=== PATIENT | female | born 1955 | race Caucasian/White ===

== ENCOUNTER 2017-01-07 08:57 | Inpatient (IN) | payer MEDICARE, MEDICAID ==
--- NOTE | 2017-01-07 14:59 | PCM.HP ---
H&P History of Present Illness - General Date of Service: 01/07/17 Admit Problem/Dx: cellulitis - History of Present Illness Initial Comments - Free Text/Narative: 61 y/o with PMH of pre-DM, obesity, chronic pain- back/leg, fatty liver, GERD, HTN, HLD pt admitted to [facility] 12/30/15 for severe cellulitis . She responded well to vanc/ zosyn- cultures neg to date but has h/o MRSA. pt requires 10-14 days of vanc Britt states her leg cont to improve on the antibx and with draining blisters. Pain is controlled iwth the fentayl and PRN norco. no f/c she denies any problems with antibx- no rash, dairies, n/v. no abd pain . - Related Data Allergies/Adverse Reactions: Allergies Allergy/AdvReac Type Severity Reaction Status Date / Time erythromycin base Allergy Dizziness Verified 01/07/17 15:49 Home Medications: Home Meds Gabapentin [Neurontin] 600 mg PO BID 12/30/16 [History] Hydrochlorothiazide 25 mg PO DAILY 12/30/16 [History] Lisinopril 40 mg PO DAILY 12/30/16 [History] Sertraline [Zoloft] 150 mg PO DAILY 12/30/16 [History] Solifenacin [Vesicare] 10 mg PO DAILY 12/30/16 [History] metFORMIN HCl [Metformin HCl] 500 mg PO ACBREAKFAST 12/30/16 [History] Aspirin/Calcium Carbonate/Mag [Aspirin Buffered 325 mg Tab] 325 mg PO DAILY [History] Docusate Sodium [Colace] 100 mg PO DAILY 01/07/17 [History] Hydrocodone/Acetaminophen [Hydrocodon-Acetaminophn 10-325] 1 tab PO Q8H PRN [History] Ibuprofen 800 mg PO Q8H PRN 01/07/17 [History] Nystatin [Nystop] 15 gm TOP TID 01/07/17 [History] Omeprazole 20 mg PO BIDAC 01/07/17 [History] Sennosides/Docusate Sodium [Senokot-S Tablet] 1 each PO BEDTIME 01/07/17 [ History] amLODIPine [Norvasc] 5 mg PO DAILY 01/07/17 [History] atorvaSTATin [Lipitor] 40 mg PO DAILY 01/07/17 [History] Past Medical History Gastrointestinal History: Reports: Other (see below) Other Gastrointestinal History: enlarged liver Endocrine/Metabolic History: Reports: Obesity/BMI 30+ - Past Surgical History Other Cardiovascular Surgeries/Procedures: OCD Other Musculoskeletal Surgeries/Procedures:: left knee metal plate Social & Family History - Tobacco Use Smoking Status *Q: Never Smoker Second Hand Smoke Exposure: Yes - Caffeine Use Caffeine Use: Reports: None - Recreational Drug Use Recreational Drug Use: No H&P Review of Systems - Review of Systems: Review Of Systems: See Below General: Reports: decreased appetite HEENT: Reports: no symptoms Pulmonary: Reports: no symptoms Cardiovascular: Reports: dyspnea on exertion, edema Gastrointestinal: Reports: No symptoms Genitourinary: Reports: urgency Musculoskeletal: Reports: leg pain Skin: Reports: erythema Psychiatric: Reports: depression (h/o), anxiety (h/o) Neurological: Reports: no symptoms Exam - Exam Exam: See Below - Vital Signs Weight: 136.078 kg - Exam Quality Assessment: central line/PICC General: alert, oriented, cooperative HEENT: Conjunctiva clear, Other (apthous ulcer in inner lower lip ) Lungs: Clear to auscultation, Normal respiratory effort Cardiovascular: regular rate, regular rhythm Abdomen: normal bowel sounds, soft, other (morbidly obese ) Extremities: other (left leg in wraps, ) Skin: warm Neuro Extensive - Mental Status: alert, oriented x3, normal mood/affect, normal cognition Psychiatric: alert, normal affect - Patient Data Lab Results last 24 hrs: most recent labs from [facility]: WBC 8.1, hgb 12.2. plates 500 sodium 135, K 4.4 , CO2 26, BUN 11 creatrinin 0.8 *Q Meaningful Use (ADM) - VTE *Q VTE Criteria *Q: - Stroke *Q Stroke Criteria *Q: - AMI *Q AMI Criteria *Q: - Problem List (1) Cellulitis SNOMED Code(s): 768653966 ICD Code: L03.90 - CELLULITIS, UNSPECIFIED Status: Acute Current Visit: No Qualifiers: Site of cellulitis: extremity Site of cellulitis of extremity: lower extremity Laterality: left Qualified Code(s): L03.116 - Cellulitis of left lower limb Problem List Initiated/Reviewed/Updated: Yes Assessment/Plan Comment:: Cellulitins -initially admitted to [facility] on 12/30/16. -h/o MRSA -antibx course- vanc/zosyn- now just zosyn - ID recommending 10-14 days -PICC line placed 01/07/17 -blisters on leg drained - requiring dressing changes several time daily -has lymphedema wraps -pain controlled iwth fenatnl patch- last placed 01/06/17 and PRN norco -consult PT/OT to keep pt mobile -f/u with wound care january 21 ; and ID 01/14/17 - labs for this appointment placed - Hyperglycemia/ fatty liver/ obestiy -cont metformin Chronic pain -h/o trauma to leg and chronic back pain -cont gabapentin HTN stable - cont prior regimen - was on lisinopril 40 prior to admit - pressures were low so now only on 10 mg apthous ulcer lower lip add Triamcinolone dental paste BID to ulcer GERD -cont PPI HLD -cont statin Urge incontinency -cont detrol PRe-DM -cont metfomrin -PRN SSI full code heparin for DVT PPX
[2017-01-07] MEDS ORDERED: Ibuprofen 800 MG Tab PO PRN (16:06)
[2017-01-07] MEDS ORDERED: Vancomycin 1.5 GM in Sodium Chloride 0.9% 500 ML IV SCH (17:00)
[2017-01-07] MEDS: Insulin Aspart 100 Units/ML 3 ML Pen SUBCUT SCH ×2 (17:14→21:07)
[2017-01-07] MEDS: Omeprazole 20 MG Cap.CR PO SCH (17:25)
[2017-01-07] MEDS: fentaNYL 12 MCG/HR Transdermal Patch TRDERM SCH (19:44)
[2017-01-07] MEDS: Heparin Sodium 5,000 Units/ML Vial SUBCUT SCH (21:06)
[2017-01-07] MEDS: Tolterodine 2 MG Tab PO SCH (21:06)
[2017-01-07] MEDS: Gabapentin 300 MG Cap PO SCH (21:06)
[2017-01-07] MEDS: Triamcinolone Acetonide 0.1% Dental Paste 5 GM Tube DENT SCH (21:06)
[2017-01-07] MEDS: Acetaminophen/HYDROcodone 325-10 MG Tab PO PRN (21:07)
[2017-01-08] MEDS ORDERED: Vancomycin 1.5 GM in Sodium Chloride 0.9% 500 ML IV SCH (02:00)
[2017-01-08] MEDS: Vancomycin 1.5 GM in Sodium Chloride 0.9% 500 ML IV SCH ×2 (04:53→16:32)
[2017-01-08] MEDS: Omeprazole 20 MG Cap.CR PO SCH ×2 (05:01→16:31)
[2017-01-08] MEDS: Heparin Sodium 5,000 Units/ML Vial SUBCUT SCH ×3 (05:01→21:33)
[2017-01-08] MEDS ORDERED: metFORMIN 500 MG Tab PO SCH (06:00)
[2017-01-08] MEDS: Insulin Aspart 100 Units/ML 3 ML Pen SUBCUT SCH ×4 (07:55→21:32)
[2017-01-08] MEDS: Aspirin 325 MG Tab.EC PO SCH (08:26)
[2017-01-08] MEDS: Tolterodine 2 MG Tab PO SCH ×2 (08:27→21:33)
[2017-01-08] MEDS: Hydrochlorothiazide 25 MG Tab PO SCH (08:27)
[2017-01-08] MEDS: Lisinopril 10 MG Tab PO SCH (08:27)
[2017-01-08] MEDS: atorvaSTATin 20 MG Tab PO SCH (08:28)
[2017-01-08] MEDS: Gabapentin 300 MG Cap PO SCH ×2 (08:28→21:33)
[2017-01-08] MEDS: Sertraline 50 MG Tab PO SCH (08:29)
[2017-01-08] MEDS: Docusate Sodium 100 MG Cap PO SCH (08:29)
[2017-01-08] MEDS: Acetaminophen/HYDROcodone 325-10 MG Tab PO PRN ×2 (08:32→16:30)
[2017-01-08] MEDS: Triamcinolone Acetonide 0.1% Dental Paste 5 GM Tube DENT SCH ×2 (08:34→21:33)
[2017-01-08] MEDS ORDERED: amLODIPine 5 MG Tab PO SCH (09:00)
[2017-01-08] MEDS: Nystatin Crm 15 GM Tube TOP SCH ×2 (11:30→21:33)
[2017-01-09] MEDS: Acetaminophen/HYDROcodone 325-10 MG Tab PO PRN ×3 (00:37→17:16)
[2017-01-09] MEDS: Vancomycin 1.5 GM in Sodium Chloride 0.9% 500 ML IV SCH ×2 (05:21→18:04)
[2017-01-09] MEDS: Omeprazole 20 MG Cap.CR PO SCH ×2 (05:21→17:16)
[2017-01-09] MEDS: Heparin Sodium 5,000 Units/ML Vial SUBCUT SCH ×3 (05:21→21:06)
[2017-01-09] MEDS: Insulin Aspart 100 Units/ML 3 ML Pen SUBCUT SCH ×4 (08:16→21:05)
[2017-01-09] MEDS: Aspirin 325 MG Tab.EC PO SCH (08:37)
[2017-01-09] MEDS: metFORMIN 500 MG Tab PO SCH (08:37)
[2017-01-09] MEDS: Gabapentin 300 MG Cap PO SCH ×2 (08:37→21:04)
[2017-01-09] MEDS: Lisinopril 10 MG Tab PO SCH (08:38)
[2017-01-09] MEDS: Docusate Sodium 100 MG Cap PO SCH (08:38)
[2017-01-09] MEDS: Tolterodine 2 MG Tab PO SCH ×2 (08:38→21:04)
[2017-01-09] MEDS: Hydrochlorothiazide 25 MG Tab PO SCH (08:39)
[2017-01-09] MEDS: atorvaSTATin 20 MG Tab PO SCH (08:39)
[2017-01-09] MEDS: Sertraline 50 MG Tab PO SCH (08:39)
[2017-01-09] MEDS: Nystatin Crm 15 GM Tube TOP SCH ×2 (08:42→21:04)
[2017-01-09] MEDS: Triamcinolone Acetonide 0.1% Dental Paste 5 GM Tube DENT SCH ×2 (08:42→21:04)
[2017-01-10] MEDS: Acetaminophen/HYDROcodone 325-10 MG Tab PO PRN ×3 (02:54→20:06)
[2017-01-10] MEDS: Heparin Sodium 5,000 Units/ML Vial SUBCUT SCH ×3 (05:22→21:20)
[2017-01-10] MEDS: Omeprazole 20 MG Cap.CR PO SCH ×2 (05:22→17:20)
[2017-01-10] MEDS: Vancomycin 1.5 GM in Sodium Chloride 0.9% 500 ML IV SCH ×2 (05:22→17:23)
[2017-01-10] MEDS: atorvaSTATin 20 MG Tab PO SCH (08:11)
[2017-01-10] MEDS: metFORMIN 500 MG Tab PO SCH (08:11)
[2017-01-10] MEDS: Tolterodine 2 MG Tab PO SCH ×2 (08:11→21:17)
[2017-01-10] MEDS: Lisinopril 10 MG Tab PO SCH (08:12)
[2017-01-10] MEDS: Aspirin 325 MG Tab.EC PO SCH (08:12)
[2017-01-10] MEDS: Docusate Sodium 100 MG Cap PO SCH (08:12)
[2017-01-10] MEDS: Hydrochlorothiazide 25 MG Tab PO SCH (08:12)
[2017-01-10] MEDS: Gabapentin 300 MG Cap PO SCH ×2 (08:12→21:17)
[2017-01-10] MEDS: Insulin Aspart 100 Units/ML 3 ML Pen SUBCUT SCH ×2 (08:44→17:58)
[2017-01-10] MEDS: Sertraline 50 MG Tab PO SCH (11:20)
[2017-01-10] MEDS: fentaNYL 12 MCG/HR Transdermal Patch TRDERM SCH (17:22)
[2017-01-10] MEDS: Triamcinolone Acetonide 0.1% Dental Paste 5 GM Tube DENT SCH ×2 (17:58→21:26)
[2017-01-10] MEDS: Nystatin Crm 15 GM Tube TOP SCH ×2 (17:58→21:29)
[2017-01-11] MEDS: Vancomycin 1.5 GM in Sodium Chloride 0.9% 500 ML IV SCH ×2 (05:00→17:56)
[2017-01-11] MEDS: Omeprazole 20 MG Cap.CR PO SCH ×2 (05:55→17:54)
[2017-01-11] MEDS: Heparin Sodium 5,000 Units/ML Vial SUBCUT SCH ×3 (05:57→22:04)
[2017-01-11] MEDS: metFORMIN 500 MG Tab PO SCH (08:46)
[2017-01-11] MEDS: Gabapentin 300 MG Cap PO SCH ×2 (08:47→21:47)
[2017-01-11] MEDS: Docusate Sodium 100 MG Cap PO SCH (08:49)
[2017-01-11] MEDS: Hydrochlorothiazide 25 MG Tab PO SCH (08:50)
[2017-01-11] MEDS: Lisinopril 10 MG Tab PO SCH (08:50)
[2017-01-11] MEDS: Aspirin 325 MG Tab.EC PO SCH (08:50)
[2017-01-11] MEDS: Sertraline 50 MG Tab PO SCH (08:51)
[2017-01-11] MEDS: Tolterodine 2 MG Tab PO SCH ×2 (08:51→21:47)
[2017-01-11] MEDS: atorvaSTATin 20 MG Tab PO SCH (08:51)
[2017-01-11] MEDS: Triamcinolone Acetonide 0.1% Dental Paste 5 GM Tube DENT SCH ×2 (08:53→21:46)
[2017-01-11] MEDS: Acetaminophen/HYDROcodone 325-10 MG Tab PO PRN ×2 (09:02→17:55)
[2017-01-11] MEDS: Nystatin Crm 15 GM Tube TOP SCH ×2 (12:34→21:46)
[2017-01-12] MEDS: Acetaminophen/HYDROcodone 325-10 MG Tab PO PRN ×3 (02:16→19:54)
[2017-01-12] MEDS: Vancomycin 1.5 GM in Sodium Chloride 0.9% 500 ML IV SCH ×2 (04:58→17:00)
[2017-01-12] MEDS: Heparin Sodium 5,000 Units/ML Vial SUBCUT SCH ×3 (05:26→21:43)
[2017-01-12] MEDS: Omeprazole 20 MG Cap.CR PO SCH ×2 (05:26→17:02)
[2017-01-12] MEDS: metFORMIN 500 MG Tab PO SCH (08:40)
[2017-01-12] MEDS: Hydrochlorothiazide 25 MG Tab PO SCH (08:40)
[2017-01-12] MEDS: Aspirin 325 MG Tab.EC PO SCH (08:41)
[2017-01-12] MEDS: Gabapentin 300 MG Cap PO SCH ×2 (08:41→21:07)
[2017-01-12] MEDS: atorvaSTATin 20 MG Tab PO SCH (08:41)
[2017-01-12] MEDS: Sertraline 50 MG Tab PO SCH (08:41)
[2017-01-12] MEDS: Lisinopril 10 MG Tab PO SCH (08:42)
[2017-01-12] MEDS: Docusate Sodium 100 MG Cap PO SCH (08:42)
[2017-01-12] MEDS: Tolterodine 2 MG Tab PO SCH ×2 (08:42→21:06)
[2017-01-12] MEDS: Triamcinolone Acetonide 0.1% Dental Paste 5 GM Tube DENT SCH ×2 (11:42→21:08)
[2017-01-12] MEDS: Nystatin Crm 15 GM Tube TOP SCH ×2 (11:42→21:08)
[2017-01-13] MEDS: Vancomycin 1.5 GM in Sodium Chloride 0.9% 500 ML IV SCH ×2 (04:46→16:50)
[2017-01-13] MEDS: Acetaminophen/HYDROcodone 325-10 MG Tab PO PRN ×2 (05:05→13:16)
[2017-01-13] MEDS: Omeprazole 20 MG Cap.CR PO SCH ×2 (06:00→16:51)
[2017-01-13] MEDS: Heparin Sodium 5,000 Units/ML Vial SUBCUT SCH ×3 (06:00→21:37)
[2017-01-13] MEDS: Hydrochlorothiazide 25 MG Tab PO SCH (08:17)
[2017-01-13] MEDS: atorvaSTATin 20 MG Tab PO SCH (08:17)
[2017-01-13] MEDS: Aspirin 325 MG Tab.EC PO SCH (08:17)
[2017-01-13] MEDS: Docusate Sodium 100 MG Cap PO SCH (08:17)
[2017-01-13] MEDS: metFORMIN 500 MG Tab PO SCH (08:17)
[2017-01-13] MEDS: Sertraline 50 MG Tab PO SCH (08:17)
[2017-01-13] MEDS: Tolterodine 2 MG Tab PO SCH ×2 (08:17→21:17)
[2017-01-13] MEDS: Lisinopril 10 MG Tab PO SCH (08:18)
[2017-01-13] MEDS: Gabapentin 300 MG Cap PO SCH ×2 (08:18→21:17)
[2017-01-13] MEDS: Nystatin Crm 15 GM Tube TOP SCH ×2 (08:20→21:19)
[2017-01-13] MEDS: Triamcinolone Acetonide 0.1% Dental Paste 5 GM Tube DENT SCH ×2 (08:21→21:19)
[2017-01-13] MEDS: Acetaminophen 325 MG Tab PO PRN (09:43)
[2017-01-13] MEDS: fentaNYL 12 MCG/HR Transdermal Patch TRDERM SCH (16:51)
[2017-01-14] MEDS: Vancomycin 1.5 GM in Sodium Chloride 0.9% 500 ML IV SCH (04:50)
[2017-01-14] MEDS: Heparin Sodium 5,000 Units/ML Vial SUBCUT SCH ×3 (05:57→22:05)
[2017-01-14] MEDS: Omeprazole 20 MG Cap.CR PO SCH ×2 (05:58→17:15)
[2017-01-14] MEDS: Sertraline 50 MG Tab PO SCH (09:16)
[2017-01-14] MEDS: Aspirin 325 MG Tab.EC PO SCH (09:17)
[2017-01-14] MEDS: Tolterodine 2 MG Tab PO SCH ×2 (09:17→22:03)
[2017-01-14] MEDS: Docusate Sodium 100 MG Cap PO SCH (09:17)
[2017-01-14] MEDS: metFORMIN 500 MG Tab PO SCH (09:17)
[2017-01-14] MEDS: Lisinopril 10 MG Tab PO SCH (09:18)
[2017-01-14] MEDS: atorvaSTATin 20 MG Tab PO SCH (09:18)
[2017-01-14] MEDS: Gabapentin 300 MG Cap PO SCH ×2 (09:18→22:01)
[2017-01-14] MEDS: Hydrochlorothiazide 25 MG Tab PO SCH (09:18)
[2017-01-14] MEDS: Nystatin Crm 15 GM Tube TOP SCH ×2 (09:18→22:03)
[2017-01-14] MEDS: Triamcinolone Acetonide 0.1% Dental Paste 5 GM Tube DENT SCH ×2 (09:19→22:03)
[2017-01-14] MEDS: Acetaminophen/HYDROcodone 325-10 MG Tab PO PRN ×2 (14:24→23:09)
--- NOTE | 2017-01-14 17:32 | PCM.PN ---
- General Info Date of Service: 01/14/17 Subjective Update: Patient seen today after her follow up appt with ID. IV antibiotics now shifted to PO doxycycline. she denies any pain, no chest pain nor SOB. starting to have dry cough. no diarrhea nor abdominal pain. Functional Status: Reports: pain controlled, tolerating diet, ambulating - Patient Data Vitals - most recent: Last Vital Signs Temp 36.0 C 01/14/17 15:12 Pulse 74 01/14/17 15:12 Resp 18 01/14/17 15:12 BP 104/45 L 01/14/17 15:12 Pulse Ox 99 01/14/17 15:12 Weight - most recent: 179.441 kg I&O - last 24 hours: Intake & Output 01/14/17 01/14/17 01/14/17 06:59 14:59 22:59 Intake Total 400 Output Total 500 Balance -100 Lab Results last 24 hrs: Laboratory Results - last 24 hr 01/13/17 01/14/17 01/14/17 Range/Units 07:37 06:00 06:00 WBC 5.8 (5.0-10.0) 10^3/uL RBC 4.07 L (4.2-5.4) 10^6/uL Hgb 11.8 L (12.0-16.0) g/dL Hct 37.5 (37.0-47.0) % MCV 92.1 (80-100) fL MCH 29.0 (27.0-34.0) pg MCHC 31.5 L (33.0-35.0) g/dL Plt Count 408 (150-450) 10^3/uL Neut % (Auto) 57.1 (42.2-75.2) % Lymph % (Auto) 30.3 (20.5-50.1) % [place] % (Auto) 10.2 H (2-8) % Eos % (Auto) 1.9 (1.0-3.0) % Baso % (Auto) 0.5 (0.0-1.0) % ESR 76 H (0-20) mm/hr Creatinine 0.7 (0.6-1.3) mg/dL Est Cr Clr Drug Dosing 101.73 mL/min Estimated GFR (MDRD) > 60 POC Glucose 99 (70-105) mg/dl ALT 26 (10-60) IU/L C-Reactive Protein (0.0-1.3) mg/dL 01/14/17 01/14/17 Range/Units 06:00 08:04 WBC (5.0-10.0) 10^3/uL RBC (4.2-5.4) 10^6/uL Hgb (12.0-16.0) g/dL Hct (37.0-47.0) % MCV (80-100) fL MCH (27.0-34.0) pg MCHC (33.0-35.0) g/dL Plt Count (150-450) 10^3/uL Neut % (Auto) (42.2-75.2) % Lymph % (Auto) (20.5-50.1) % [place] % (Auto) (2-8) % Eos % (Auto) (1.0-3.0) % Baso % (Auto) (0.0-1.0) % ESR (0-20) mm/hr Creatinine (0.6-1.3) mg/dL Est Cr Clr Drug Dosing mL/min Estimated GFR (MDRD) POC Glucose 115 H (70-105) mg/dl ALT (10-60) IU/L C-Reactive Protein 3.0 H (0.0-1.3) mg/dL Med Orders - Current: Current Medications Acetaminophen (Tylenol) 650 mg PO Q6H PRN PRN Reason: Pain Last Admin: 01/13/17 09:43 Dose: 650 mg Acetaminophen/Hydrocodone Bitart ([place] 325-10 Mg) 1 tab PO Q8H PRN PRN Reason: Pain (severe 7-10) Last Admin: 01/14/17 14:24 Dose: 1 tab Aspirin (Ecotrin) 325 mg PO DAILY [facility] Last Admin: 01/14/17 09:17 Dose: 325 mg Atorvastatin Calcium (Lipitor) 40 mg PO DAILY [facility] Last Admin: 01/14/17 09:18 Dose: 40 mg Docusate Sodium (Colace) 100 mg PO DAILY [facility] Last Admin: 01/14/17 09:17 Dose: 100 mg Doxycycline Hyclate (Vibramycin) 100 mg PO Q12HR [facility] Stop: 01/27/17 23:59 Fentanyl (Duragesic) 12 mcg TRDERM Q72H [facility] Last Admin: 01/13/17 16:51 Dose: 12 mcg Gabapentin (Neurontin) 600 mg PO BID [facility] Last Admin: 01/14/17 09:18 Dose: 600 mg Heparin Sodium (Porcine) (Heparin Sodium) 5,000 units SUBCUT Q8HR [facility] Last Admin: 01/14/17 14:23 Dose: 5,000 units Hydrochlorothiazide (Hydrochlorothiazide) 25 mg PO DAILY [facility] Last Admin: 01/14/17 09:18 Dose: 25 mg Lisinopril (Prinivil) 10 mg PO DAILY [facility] Last Admin: 01/14/17 09:18 Dose: 10 mg Metformin HCl (Glucophage) 500 mg PO DAILY@0800 [facility] Last Admin: 01/14/17 09:17 Dose: 500 mg Nystatin (Nystatin Crm) 0 gm TOP BID [facility] Last Admin: 01/14/17 09:18 Dose: 1 applic Omeprazole (Omeprazole) 20 mg PO BIDAC [facility] Last Admin: 01/14/17 17:15 Dose: 20 mg Senna/Docusate Sodium (Senna Plus) 1 tab PO BEDTIME [facility] Last Admin: 01/13/17 21:18 Dose: 1 tab Sertraline HCl (Zoloft) 150 mg PO DAILY [facility] Last Admin: 01/14/17 09:16 Dose: 150 mg Tolterodine Tartrate (Detrol) 2 mg PO BID [facility] Last Admin: 01/14/17 09:17 Dose: 2 mg Triamcinolone Acetonide (Oralone 0.1% Dental Paste) 5 gm DENT BID [facility] Last Admin: 01/14/17 09:19 Dose: 1 applic Discontinued Medications Amlodipine Besylate (Norvasc) 5 mg PO DAILY [facility] Vancomycin HCl 1.5 gm/ Sodium (Chloride) 500 mls @ 333.333 mls/hr IV Q12H [facility] Last Admin: 01/07/17 17:11 Dose: 333.333 mls/hr Vancomycin HCl 1.5 gm/ Sodium (Chloride) 500 mls @ 333.333 mls/hr IV Q12H [facility] Vancomycin HCl 1.5 gm/ Sodium (Chloride) 500 mls @ 333.333 mls/hr IV Q12H [facility] Last Admin: 01/14/17 04:50 Dose: 200 mls/hr Ibuprofen (Motrin) 800 mg PO Q8H PRN PRN Reason: Pain (mild 1-3) Insulin Aspart (Novolog) 0 unit SUBCUT QIDACANDBED [facility] PRN Reason: Protocol Last Admin: 01/10/17 17:58 Dose: Not Given Metformin HCl (Glucophage) 500 mg PO ACBREAKFAST [facility] Last Admin: 01/08/17 08:28 Dose: 500 mg Metformin HCl (Glucophage) 500 mg PO DAILY@0700 [facility] Last Admin: 01/13/17 08:17 Dose: 500 mg Vancomycin HCl (Pharmacy To Dose - Vancomycin) 1 dose .XX ASDIRECTED [facility] - Exam General: alert, oriented Lungs: Clear to auscultation, Normal respiratory effort Cardiovascular: regular rate, regular rhythm Extremities: other (left LE dressed. ) - Problem List Review Problem List Initiated/Reviewed/Updated: Yes - My Orders Last 24 Hours: My Active Orders 01/14/17 21:00 Doxycycline [Vibramycin] 100 mg PO Q12HR - Plan Plan:: Cellulitis -initially admitted to [facility] on 12/30/16. -h/o MRSA -PICC line REMOVED -blisters on leg drained - requiring dressing changes several time daily -has lymphedema wraps -denies any pain - PO doxcycline started Hyperglycemia/ fatty liver/ obestiy -cont metformin Chronic pain -h/o trauma to leg and chronic back pain -cont gabapentin HTN stable on lisinopril full code heparin for DVT PPX
[2017-01-14] MEDS: Doxycycline 100 MG Cap PO SCH (22:02)
[2017-01-15] MEDS: Heparin Sodium 5,000 Units/ML Vial SUBCUT SCH ×3 (05:53→21:36)
[2017-01-15] MEDS: Omeprazole 20 MG Cap.CR PO SCH ×2 (05:53→17:03)
[2017-01-15] MEDS: metFORMIN 500 MG Tab PO SCH (08:58)
[2017-01-15] MEDS: Acetaminophen/HYDROcodone 325-10 MG Tab PO PRN (08:59)
[2017-01-15] MEDS: Hydrochlorothiazide 25 MG Tab PO SCH (09:36)
[2017-01-15] MEDS: Aspirin 325 MG Tab.EC PO SCH (09:36)
[2017-01-15] MEDS: Docusate Sodium 100 MG Cap PO SCH (09:36)
[2017-01-15] MEDS: atorvaSTATin 20 MG Tab PO SCH (09:37)
[2017-01-15] MEDS: Gabapentin 300 MG Cap PO SCH ×2 (09:37→21:36)
[2017-01-15] MEDS: Doxycycline 100 MG Cap PO SCH ×2 (09:39→21:35)
[2017-01-15] MEDS: Triamcinolone Acetonide 0.1% Dental Paste 5 GM Tube DENT SCH ×2 (09:41→21:37)
[2017-01-15] MEDS: Nystatin Crm 15 GM Tube TOP SCH ×2 (09:41→21:37)
[2017-01-15] MEDS: Tolterodine 2 MG Tab PO SCH ×2 (09:51→21:35)
[2017-01-15] MEDS: Lisinopril 10 MG Tab PO SCH (09:52)
[2017-01-15] MEDS: Sertraline 50 MG Tab PO SCH (09:52)
[2017-01-16] MEDS: Heparin Sodium 5,000 Units/ML Vial SUBCUT SCH ×3 (05:19→22:00)
[2017-01-16] MEDS: Omeprazole 20 MG Cap.CR PO SCH ×2 (05:19→16:51)
[2017-01-16] MEDS: metFORMIN 500 MG Tab PO SCH (08:11)
[2017-01-16] MEDS: Docusate Sodium 100 MG Cap PO SCH (08:12)
[2017-01-16] MEDS: Aspirin 325 MG Tab.EC PO SCH (08:13)
[2017-01-16] MEDS: Tolterodine 2 MG Tab PO SCH ×2 (08:13→21:58)
[2017-01-16] MEDS: Hydrochlorothiazide 25 MG Tab PO SCH (08:13)
[2017-01-16] MEDS: atorvaSTATin 20 MG Tab PO SCH (08:14)
[2017-01-16] MEDS: Gabapentin 300 MG Cap PO SCH ×2 (08:15→21:59)
[2017-01-16] MEDS: Lisinopril 10 MG Tab PO SCH (08:15)
[2017-01-16] MEDS: Doxycycline 100 MG Cap PO SCH ×2 (08:16→21:59)
[2017-01-16] MEDS: Sertraline 50 MG Tab PO SCH (08:16)
[2017-01-16] MEDS: Triamcinolone Acetonide 0.1% Dental Paste 5 GM Tube DENT SCH ×2 (08:18→22:02)
[2017-01-16] MEDS: Nystatin Crm 15 GM Tube TOP SCH ×2 (08:19→22:02)
[2017-01-16] MEDS: fentaNYL 12 MCG/HR Transdermal Patch TRDERM SCH (16:51)
[2017-01-17] MEDS: Omeprazole 20 MG Cap.CR PO SCH ×2 (05:55→17:37)
[2017-01-17] MEDS: Heparin Sodium 5,000 Units/ML Vial SUBCUT SCH ×3 (05:55→22:19)
[2017-01-17] MEDS: Hydrochlorothiazide 25 MG Tab PO SCH (08:44)
[2017-01-17] MEDS: metFORMIN 500 MG Tab PO SCH (08:44)
[2017-01-17] MEDS: Sertraline 50 MG Tab PO SCH (08:44)
[2017-01-17] MEDS: Lisinopril 10 MG Tab PO SCH (08:44)
[2017-01-17] MEDS: Tolterodine 2 MG Tab PO SCH ×2 (08:44→20:31)
[2017-01-17] MEDS: Triamcinolone Acetonide 0.1% Dental Paste 5 GM Tube DENT SCH ×2 (08:45→20:31)
[2017-01-17] MEDS: Docusate Sodium 100 MG Cap PO SCH (08:45)
[2017-01-17] MEDS: atorvaSTATin 20 MG Tab PO SCH (08:45)
[2017-01-17] MEDS: Doxycycline 100 MG Cap PO SCH ×2 (08:45→20:31)
[2017-01-17] MEDS: Nystatin Crm 15 GM Tube TOP SCH ×2 (08:45→20:32)
[2017-01-17] MEDS: Aspirin 325 MG Tab.EC PO SCH (08:45)
[2017-01-17] MEDS: Gabapentin 300 MG Cap PO SCH ×2 (08:51→20:31)
--- NOTE | 2017-01-17 13:42 | PCM.PN ---
- General Info Date of Service: 01/17/17 Subjective Update: pt reprots leg cont to improve. pt hasn't needed breakthrough norco for pain since Tuesday. tolerating the doxy Functional Status: Reports: pain controlled, tolerating diet, ambulating, urinating - Review of Systems General: Reports: no symptoms Pulmonary: Reports: no symptoms Cardiovascular: Reports: no symptoms Gastrointestinal: Reports: No symptoms Musculoskeletal: Reports: leg pain (controlled ) - Patient Data Vitals - most recent: Last Vital Signs Temp 36.2 C 01/17/17 07:00 Pulse 73 01/17/17 07:00 Resp 20 01/17/17 07:00 BP 112/63 01/17/17 08:44 Pulse Ox 96 01/17/17 07:00 Weight - most recent: 179.441 kg I&O - last 24 hours: Intake & Output 01/16/17 01/17/17 01/17/17 22:59 06:59 14:59 Intake Total 1260 500 Balance 1260 500 Lab Results last 24 hrs: Laboratory Results - last 24 hr 01/17/17 Range/Units 07:45 POC Glucose 110 H (70-105) mg/dl Med Orders - Current: Current Medications Acetaminophen (Tylenol) 650 mg PO Q6H PRN PRN Reason: Pain Last Admin: 01/13/17 09:43 Dose: 650 mg Acetaminophen/Hydrocodone Bitart ([place] 325-10 Mg) 1 tab PO Q8H PRN PRN Reason: Pain (severe 7-10) Last Admin: 01/15/17 08:59 Dose: 1 tab Aspirin (Ecotrin) 325 mg PO DAILY [facility] Last Admin: 01/17/17 08:45 Dose: 325 mg Atorvastatin Calcium (Lipitor) 40 mg PO DAILY [facility] Last Admin: 01/17/17 08:45 Dose: 40 mg Docusate Sodium (Colace) 100 mg PO DAILY [facility] Last Admin: 01/17/17 08:45 Dose: 100 mg Doxycycline Hyclate (Vibramycin) 100 mg PO Q12HR [facility] Stop: 01/27/17 23:59 Last Admin: 01/17/17 08:45 Dose: 100 mg Fentanyl (Duragesic) 12 mcg TRDERM Q72H [facility] Last Admin: 01/16/17 16:51 Dose: 12 mcg Gabapentin (Neurontin) 600 mg PO BID [facility] Last Admin: 01/17/17 08:51 Dose: 600 mg Heparin Sodium (Porcine) (Heparin Sodium) 5,000 units SUBCUT Q8HR [facility] Last Admin: 01/17/17 05:55 Dose: 5,000 units Hydrochlorothiazide (Hydrochlorothiazide) 25 mg PO DAILY [facility] Last Admin: 01/17/17 08:44 Dose: 25 mg Lisinopril (Prinivil) 10 mg PO DAILY [facility] Last Admin: 01/17/17 08:44 Dose: 10 mg Metformin HCl (Glucophage) 500 mg PO DAILY@0800 [facility] Last Admin: 01/17/17 08:44 Dose: 500 mg Nystatin (Nystatin Crm) 0 gm TOP BID [facility] Last Admin: 01/17/17 08:45 Dose: 1 applic [facility] Last Admin: 01/17/17 05:55 Dose: 20 mg Senna/Docusate Sodium (Senna Plus) 1 tab PO BEDTIME [facility] Last Admin: 01/16/17 21:59 Dose: 1 tab Sertraline HCl (Zoloft) 150 mg PO DAILY [facility] Last Admin: 01/17/17 08:44 Dose: 150 mg Tolterodine Tartrate (Detrol) 2 mg PO BID [facility] Last Admin: 01/17/17 08:44 Dose: 2 mg Triamcinolone Acetonide (Oralone 0.1% Dental Paste) 5 gm DENT BID [facility] Last Admin: 01/17/17 08:45 Dose: 1 applic Discontinued Medications Amlodipine Besylate (Norvasc) 5 mg PO DAILY [facility] Vancomycin HCl 1.5 gm/ Sodium (Chloride) 500 mls @ 333.333 mls/hr IV Q12H [facility] Last Admin: 01/07/17 17:11 Dose: 333.333 mls/hr Vancomycin HCl 1.5 gm/ Sodium (Chloride) 500 mls @ 333.333 mls/hr IV Q12H [facility] Vancomycin HCl 1.5 gm/ Sodium (Chloride) 500 mls @ 333.333 mls/hr IV Q12H [facility] Last Admin: 01/14/17 04:50 Dose: 200 mls/hr Ibuprofen (Motrin) 800 mg PO Q8H PRN PRN Reason: Pain (mild 1-3) Insulin Aspart (Novolog) 0 unit SUBCUT QIDACANDBED [facility] PRN Reason: Protocol Last Admin: 01/10/17 17:58 Dose: Not Given Metformin HCl (Glucophage) 500 mg PO ACBREAKFAST [facility] Last Admin: 01/08/17 08:28 Dose: 500 mg Metformin HCl (Glucophage) 500 mg PO DAILY@0700 [facility] Last Admin: 01/13/17 08:17 Dose: 500 mg Vancomycin HCl (Pharmacy To Dose - Vancomycin) 1 dose .XX ASDIRECTED [facility] - Exam General: alert, oriented, cooperative, no acute distress Lungs: Clear to auscultation, Normal respiratory effort Cardiovascular: regular rate, regular rhythm, no murmurs Abdomen: bowel sounds present, soft, no tenderness, other (obese) Wound/Incisions: healing well, other (left leg - drying skin from blisteres, no pustular drainage. ) - Problem List & Annotations (1) Cellulitis SNOMED Code(s): 898852897 Code(s): L03.90 - CELLULITIS, UNSPECIFIED Status: Acute Current Visit: No Qualifiers: Site of cellulitis: extremity Site of cellulitis of extremity: lower extremity Laterality: left Qualified Code(s): L03.116 - Cellulitis of left lower limb - Problem List Review Problem List Initiated/Reviewed/Updated: Yes - Plan Plan:: Cellulitis -initially admitted to [facility] on 12/30/16. -h/o MRSA -PICC line REMOVED -blisters on leg drained healing well -has lymphedema wraps - will change M/w/F -denies any pain - PO doxcycline started -d/c fentanyl patch- was for her acute pain in leg- PRN norco- Q4H - hope to taper to Q8h at discharge Hyperglycemia/ fatty liver/ obestiy -cont metformin Chronic pain -h/o trauma to leg and chronic back pain -cont gabapentin -f/w Alexia Richards on pain contract HTN stable on lisinopril full code heparin for DVT PPX
[2017-01-17] MEDS ORDERED: Acetaminophen/HYDROcodone 325-10 MG Tab PO PRN (13:43)
[2017-01-17] MEDS: fentaNYL 12 MCG/HR Transdermal Patch TRDERM SCH (15:14)
[2017-01-18] MEDS: Heparin Sodium 5,000 Units/ML Vial SUBCUT SCH ×3 (06:04→21:49)
[2017-01-18] MEDS: Omeprazole 20 MG Cap.CR PO SCH ×2 (06:04→17:23)
[2017-01-18] MEDS: Gabapentin 300 MG Cap PO SCH ×2 (09:35→21:46)
[2017-01-18] MEDS: atorvaSTATin 20 MG Tab PO SCH (09:35)
[2017-01-18] MEDS: metFORMIN 500 MG Tab PO SCH (09:36)
[2017-01-18] MEDS: Lisinopril 10 MG Tab PO SCH (09:36)
[2017-01-18] MEDS: Tolterodine 2 MG Tab PO SCH ×2 (09:36→21:45)
[2017-01-18] MEDS: Doxycycline 100 MG Cap PO SCH ×2 (09:36→21:46)
[2017-01-18] MEDS: Docusate Sodium 100 MG Cap PO SCH (09:36)
[2017-01-18] MEDS: Sertraline 50 MG Tab PO SCH (09:36)
[2017-01-18] MEDS: Aspirin 325 MG Tab.EC PO SCH (09:36)
[2017-01-18] MEDS: Hydrochlorothiazide 25 MG Tab PO SCH (09:37)
[2017-01-18] MEDS: Nystatin Crm 15 GM Tube TOP SCH ×2 (09:41→21:49)
[2017-01-18] MEDS: Triamcinolone Acetonide 0.1% Dental Paste 5 GM Tube DENT SCH ×2 (09:42→21:48)
[2017-01-18] MEDS: Mineral Oil/White Petrolatum Crm 113 GM Jar TOP SCH (10:56)
[2017-01-18] MEDS: Acetaminophen 325 MG Tab PO PRN (14:28)
[2017-01-19] MEDS: Heparin Sodium 5,000 Units/ML Vial SUBCUT SCH ×2 (05:46→16:51)
[2017-01-19] MEDS: Omeprazole 20 MG Cap.CR PO SCH ×2 (05:47→16:50)
[2017-01-19] MEDS: metFORMIN 500 MG Tab PO SCH (08:41)
[2017-01-19] MEDS: Tolterodine 2 MG Tab PO SCH (08:42)
[2017-01-19] MEDS: Docusate Sodium 100 MG Cap PO SCH (08:42)
[2017-01-19] MEDS: Aspirin 325 MG Tab.EC PO SCH (08:42)
[2017-01-19] MEDS: Hydrochlorothiazide 25 MG Tab PO SCH (08:43)
[2017-01-19] MEDS: atorvaSTATin 20 MG Tab PO SCH (08:43)
[2017-01-19] MEDS: Lisinopril 10 MG Tab PO SCH (08:44)
[2017-01-19] MEDS: Sertraline 50 MG Tab PO SCH (08:44)
[2017-01-19] MEDS: Gabapentin 300 MG Cap PO SCH (08:44)
[2017-01-19] MEDS: Doxycycline 100 MG Cap PO SCH (08:45)
--- NOTE | 2017-01-19 10:04 | PCM.DCSUM1 ---
Discharge Summary - Hospital Course HPI Initial Comments: 61 y/o with PMH of pre-DM, obesity, chronic pain- back/leg, fatty liver, GERD, HTN, HLD pt admitted to [facility] 12/30/15 for severe cellulitis . She responded well to vanc/ zosyn- cultures neg to date but has h/o MRSA. pt requires 10-14 days of vanc Britt states her leg cont to improve on the antibx and with draining blisters. Pain is controlled iwth the fentayl and PRN norco. no f/c she denies any problems with antibx- no rash, dairies, n/v. no abd pain - Discharge Data Discharge Date: 01/19/17 Discharge Disposition: Home, W Home Health Agency 06 Condition: Good - Discharge Diagnosis/Problem(s) (1) Cellulitis SNOMED Code(s): 130615112 ICD Code: L03.90 - CELLULITIS, UNSPECIFIED Status: Acute Current Visit: No Qualifiers: Site of cellulitis: extremity Site of cellulitis of extremity: lower extremity Laterality: left Qualified Code(s): L03.116 - Cellulitis of left lower limb - Patient Summary/Data Consults: Consultations 01/07/17 14:59 OT Evaluation and Treatment [CONS] Routine 01/12/17 11:34 OT Evaluation and Treatment [CONS] Routine PT Evaluation and Treatment [CONS] Routine Hospital Course: Severe Cellulitis - improving -initially admitted to [facility] on 12/30/16. -h/o MRSA -completed course of IV antibx and PICC line was REMOVED -blisters on leg healing well - no longer draining - pt will need nursing with home health to cont leg wraps, cont wound care and monitoring for cont improvement. Pt is homebound due to her prolonged hospitalization, cont leg pain, healing wounds. -has lymphedema wraps; have been changed daily while in hospital- may be able to tolerate every other day- defer to Home Care -cont PO doxcycline until seen again by Dr Womack - 01/28/17 -telemed - 9:30A - will need labs prior -fentanyl patch has been d/c and pain has been controlled with PO norco- will give script as per her prior dose of 10/325 Q8H PRN -f/w with wound care clinic - telemed- 01/21/17 at 1;20 PM Hyperglycemia/ fatty liver/ obestiy -cont metformin Chronic pain -h/o trauma to leg and chronic back pain -cont gabapentin -f/w Alexia Richards on pain contract HTN stable on lisinopril - Patient Instructions Diet: Diabetic Diet Activity: As Tolerated Driving: Do Not Drive Showering/Bathing: May Shower Wound/Incision Care: Keep Operative Site/Wound Site Clean and Dry, Change Dressing Daily (unti evalulated by home health nurse ) Notify Provider of: Fever, Increased Pain - Discharge Plan Prescriptions/Med Rec: Doxycycline Calcium [IMW: Doxycycline] 100 mg PO Q12HR #28 capsule Hydrocodone/Acetaminophen [Hydrocodon-Acetaminophn 10-325] 1 tab PO Q8H PRN #25 tablet PRN Reason: Pain (Severe 7-10) Mineral Oil/Petrolatum,White [Hydrocerin Crm] 1 gm TOP DAILY #1 jar Home Medications: Home Meds Gabapentin [Neurontin] 600 mg PO BID 12/30/16 [History] Hydrochlorothiazide 25 mg PO DAILY 12/30/16 [History] Lisinopril 40 mg PO DAILY 12/30/16 [History] Sertraline [Zoloft] 150 mg PO DAILY 12/30/16 [History] Solifenacin [Vesicare] 10 mg PO DAILY 12/30/16 [History] metFORMIN HCl [Metformin HCl] 500 mg PO ACBREAKFAST 12/30/16 [History] Aspirin/Calcium Carbonate/Mag [Aspirin Buffered 325 mg Tab] 325 mg PO DAILY [History] Docusate Sodium [Colace] 100 mg PO DAILY 01/07/17 [History] Ibuprofen 800 mg PO Q8H PRN 01/07/17 [History] Omeprazole 20 mg PO BIDAC 01/07/17 [History] Sennosides/Docusate Sodium [Senokot-S Tablet] 1 each PO BEDTIME 01/07/17 [ History] atorvaSTATin [Lipitor] 40 mg PO DAILY 01/07/17 [History] Acetaminophen [Tylenol] 650 mg PO Q6H PRN #0 tablet 01/19/17 [Rx] Doxycycline Calcium [IMW: Doxycycline] 100 mg PO Q12HR #28 capsule 01/19/17 [Rx] Hydrocodone/Acetaminophen [Hydrocodon-Acetaminophn 10-325] 1 tab PO Q8H PRN #25 tablet 01/19/17 [Rx] Mineral Oil/Petrolatum,White [Hydrocerin Crm] 1 gm TOP DAILY #1 jar 01/19/17 [Rx ] Patient Handouts: Type 2 Diabetes Mellitus, Adult, Cellulitis, Adult - Discharge Summary/Plan Comment DC Time >30 min.: No - General Info Date of Service: 01/19/17 Subjective Update: pt peeled skin off her foot- has clear healthy skin underneath. has multiple areas of resolving blisters, improving purpuric skin. pain is controlled with PO norco. no GI symptoms no f/c, walking with walker - stand by assist when in halls Functional Status: Reports: pain controlled, tolerating diet, ambulating, urinating - Review of Systems General: Reports: no symptoms HEENT: Reports: no symptoms Pulmonary: Reports: no symptoms Cardiovascular: Reports: no symptoms Gastrointestinal: Reports: No symptoms Musculoskeletal: Reports: leg pain Skin: Reports: other (leg blisters/redness improving. states edema is completely resolved ) Psychiatric: Reports: no symptoms - Patient Data Vitals - Most Recent: Last Vital Signs Temp 36.0 C 01/19/17 08:20 Pulse 74 01/19/17 08:20 Resp 20 01/19/17 08:20 BP 123/57 L 01/19/17 08:20 Pulse Ox 94 L 01/19/17 08:20 Weight - Most Recent: 177.717 kg I&O - Last 24 hours: Intake & Output 01/18/17 01/19/17 01/19/17 22:59 06:59 14:59 Intake Total 365 700 960 Balance 365 700 960 Lab Results - Last 24 hrs: Laboratory Results - last 24 hr 01/19/17 Range/Units 07:17 POC Glucose 105 (70-105) mg/dl Med Orders - Current: Current Medications Acetaminophen (Tylenol) 650 mg PO Q6H PRN PRN Reason: Pain Last Admin: 01/18/17 14:28 Dose: 650 mg Acetaminophen/Hydrocodone Bitart ([place] 325-10 Mg) 1 tab PO Q4H PRN PRN Reason: Pain (moderate 4-6) Aspirin (Ecotrin) 325 mg PO DAILY AGUSTIN Last Admin: 01/19/17 08:42 Dose: 325 mg Atorvastatin Calcium (Lipitor) 40 mg PO DAILY AGUSTIN Last Admin: 01/19/17 08:43 Dose: 40 mg Docusate Sodium (Colace) 100 mg PO DAILY [facility] Last Admin: 01/19/17 08:42 Dose: 100 mg Doxycycline Hyclate (Vibramycin) 100 mg PO Q12HR [facility] Stop: 01/27/17 23:59 Last Admin: 01/19/17 08:45 Dose: 100 mg Gabapentin (Neurontin) 600 mg PO BID [facility] Last Admin: 01/19/17 08:44 Dose: 600 mg Heparin Sodium (Porcine) (Heparin Sodium) 5,000 units SUBCUT Q8HR [facility] Last Admin: 01/19/17 05:46 Dose: 5,000 units Hydrochlorothiazide (Hydrochlorothiazide) 25 mg PO DAILY [facility] Last Admin: 01/19/17 08:43 Dose: 25 mg Lisinopril (Prinivil) 10 mg PO DAILY [facility] Last Admin: 01/19/17 08:44 Dose: 10 mg Metformin HCl (Glucophage) 500 mg PO DAILY@0800 [facility] Last Admin: 01/19/17 08:41 Dose: 500 mg Mineral Oil/White Petrolatum (Hydrocerin Crm) 0 gm TOP DAILY [facility] Last Admin: 01/18/17 10:56 Dose: 1 applic Nystatin (Nystatin Crm) 0 gm TOP BID [facility] Last Admin: 01/18/17 21:49 Dose: 1 applic [facility] Last Admin: 01/19/17 05:47 Dose: 20 mg Senna/Docusate Sodium (Senna Plus) 1 tab PO BEDTIME [facility] Last Admin: 01/18/17 21:46 Dose: 1 tab Sertraline HCl (Zoloft) 150 mg PO DAILY [facility] Last Admin: 01/19/17 08:44 Dose: 150 mg Tolterodine Tartrate (Detrol) 2 mg PO BID [facility] Last Admin: 01/19/17 08:42 Dose: 2 mg Triamcinolone Acetonide (Oralone 0.1% Dental Paste) 5 gm DENT BID [facility] Last Admin: 01/18/17 21:48 Dose: 1 applic Discontinued Medications Acetaminophen/Hydrocodone Bitart ([place] 325-10 Mg) 1 tab PO Q8H PRN PRN Reason: Pain (severe 7-10) Last Admin: 01/15/17 08:59 Dose: 1 tab Amlodipine Besylate (Norvasc) 5 mg PO DAILY [facility] Fentanyl (Duragesic) 12 mcg TRDERM Q72H [facility] Last Admin: 01/17/17 15:14 Dose: 12 mcg Vancomycin HCl 1.5 gm/ Sodium (Chloride) 500 mls @ 333.333 mls/hr IV Q12H [facility] Last Admin: 01/07/17 17:11 Dose: 333.333 mls/hr Vancomycin HCl 1.5 gm/ Sodium (Chloride) 500 mls @ 333.333 mls/hr IV Q12H [facility] Vancomycin HCl 1.5 gm/ Sodium (Chloride) 500 mls @ 333.333 mls/hr IV Q12H [facility] Last Admin: 01/14/17 04:50 Dose: 200 mls/hr Ibuprofen (Motrin) 800 mg PO Q8H PRN PRN Reason: Pain (mild 1-3) Insulin Aspart (Novolog) 0 unit SUBCUT QIDACANDBED [facility] PRN Reason: Protocol Last Admin: 01/10/17 17:58 Dose: Not Given Metformin HCl (Glucophage) 500 mg PO ACBREAKFAST [facility] Last Admin: 01/08/17 08:28 Dose: 500 mg Metformin HCl (Glucophage) 500 mg PO DAILY@0700 [facility] Last Admin: 01/13/17 08:17 Dose: 500 mg Vancomycin HCl (Pharmacy To Dose - Vancomycin) 1 dose .XX ASDIRECTED [facility] - Exam General: Reports: alert, oriented, cooperative Lungs: Reports: Clear to auscultation, Normal respiratory effort Cardiovascular: Reports: regular rate, regular rhythm Abdomen: Reports: bowel sounds present, soft, no tenderness, other (obese. areas of eccymosis due to DVT PPX injections. ) Wound/Incisions: Reports: healing well, dressing dry and intact, no drainage, erythema improving Psy/Mental Status: Reports: alert, normal affect, normal mood *Q Meaningful Use (DIS) - VTE *Q VTE Criteria *Q: - Stroke *Q Stroke Criteria *Q: - AMI *Q AMI Criteria *Q:
[2017-01-19] MEDS: Nystatin Crm 15 GM Tube TOP SCH (10:28)
[2017-01-19] MEDS: Mineral Oil/White Petrolatum Crm 113 GM Jar TOP SCH (10:30)
[2017-01-19] MEDS: Triamcinolone Acetonide 0.1% Dental Paste 5 GM Tube DENT SCH (10:31)
[2017-01-19 16:26] VITALS: BP 109/61
== END 2017-01-19 18:20 | disposition home health service (06) | DRG 603 ==
LOC: DL.MS 14:41 → EEVIPCON 14:41
PROVIDERS: ADMIT Internal Medicine; ATTEND Internal Medicine
DX: L03.116 Cellulitis of left lower limb (principal); Z68.43 Body mass index [BMI] 50.0-59.9, adult; E66.9 Obesity, unspecified; I10 Essential (primary) hypertension; G89.29 Other chronic pain; M79.662 Pain in left lower leg; E11.65 Type 2 diabetes mellitus with hyperglycemia; Z79.84 Long term (current) use of oral hypoglycemic drugs; K21.9 Gastro-esophageal reflux disease without esophagitis; F41.8 Other specified anxiety disorders
CPT/HCPCS: 36415; 80202; 81001; 82565; 82962; 84460; 85025; 85651; 86140; 97140-GO; 97161-GP; 97165-GO; A9270-GY; J1644; J1815-GY; J3370; J7040

== ENCOUNTER 2017-12-11 09:26 | Emergency (ER) | payer MEDICARE, MEDICAID ==
[2017-12-11 10:31] LABS: ANION GAP 12.6; CHLORIDE,CL 101 mmol/L (101-111); SODIUM,NA 134 mmol/L (135-145)
[2017-12-11] MEDS ORDERED: Morphine 2 MG/ML Syringe IVPUSH ONE (10:35)
[2017-12-11] MEDS ORDERED: Iopamidol 612 MG/ML 100 ML Bottle IVPUSH ONE (11:03)
--- NOTE | 2017-12-11 12:04 | CT ---
Clinical history: 61-year-old hypertensive morbidly obese diabetic female with abrupt onset epigastri c pain who has had previous cholecystectomy. Etiology pain? Scan technique: Volume acquisition of data emergency CT scan abdomen and pelvis obtained without oral contrast but during intravenous administration 100 cc nonionic Isovue contrast while the patient was lying supine on the Siemens multi slice scanner [place], [place]. All data archived in the PACS system for storage, reformatting and study. Interpretation: Surgical clips gallbladder fossa RUQ 1. 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 No fractures. 2. Gastric wall thickening suggesting inflammation i.e. gastritis. Liver, spleen, pancreas and adrena l glands anatomically correct. 3. Normal reniform size axis and configuration bilaterally. No sign of renal cortical mass lesion, ne phrolithiasis or obstruction. 4. Normal midline uterus. No adnexal mass lesions. 5. No pelvic or abdominal mass lesion, mesenteric or retroperitoneal lymphadenopathy, inflammatory "d irty" peritoneal fat, signs of mechanical bowel obstruction, ascites or free intraperitoneal air. Nor mal appendix RLQ. No ventral wall or inguinal hernias. 6. Normal cardiac silhouette. Lung bases are clear. 7. Faint atheromatous calcification scattered along the course of normal caliber aortoiliac vessels. No aneurysm or dissection. CONCLUSION: Cholecystectomy. Gastritis. Multilevel disc disease and arthritis lumbar spine. No acute intraperitoneal abnormality.
[2017-12-11 12:25] VITALS: BP 124/67
[2017-12-11] MEDS ORDERED: Pantoprazole 40 MG Vial IVPUSH ONE (12:33)
--- NOTE | 2017-12-11 12:36 | EDM.PDOC ---
Scribed by Marta Almodovar 12/11/17 1215 for Juliann Keen NP ED HPI GENERAL MEDICAL PROBLEM - General Chief Complaint: Abdominal Pain Stated Complaint: IN BY AMBULANCE Time Seen by Provider: 12/11/17 09:45 Source of Information: Reports: Patient, RN, RN Notes Reviewed History Limitations: Reports: No Limitations - History of Present Illness INITIAL COMMENTS - FREE TEXT/NARRATIVE: Patient has had a cold, exposed to influenza. At 0400 she developed pain to abdomen which is aggravated with coughing and movement. Rates pain 8/10 at rest. She was fine before bed last night. Her last bowel movement was today which was runny.She states black/dark stool on Tuesday, which was abnormal bowel movement for her. She has fever, chills, nausea, diarrhea and shortness of breath. Her last colonoscopy last year. She has had no vomiting, or chest pains. She has had a productive cough of green sputum. Onset: Today Duration: Constant Location: Reports: Abdomen Quality: Reports: Ache Severity: Moderate Improves with: Reports: None Worsens with: Reports: None Associated Symptoms: Reports: No Other Symptoms Right Lower Abdominal Pain Score (Numeric/FACES): 5 - Related Data Allergies Allergy/AdvReac Type Severity Reaction Status Date / Time erythromycin base Allergy Dizziness Verified 01/07/17 15:49 Home Meds: Home Meds Gabapentin [Neurontin] 600 mg PO BID 12/30/16 [History] Hydrochlorothiazide 25 mg PO DAILY 12/30/16 [History] Lisinopril 40 mg PO DAILY 12/30/16 [History] Sertraline [Zoloft] 150 mg PO DAILY 12/30/16 [History] Solifenacin [Vesicare] 10 mg PO DAILY 12/30/16 [History] metFORMIN HCl [Metformin HCl] 500 mg PO ACBREAKFAST 12/30/16 [History] Aspirin/Calcium Carbonate/Mag [Aspirin Buffered 325 mg Tab] 325 mg PO DAILY [History] Docusate Sodium [Colace] 100 mg PO DAILY 01/07/17 [History] Ibuprofen 800 mg PO Q8H PRN 01/07/17 [History] Omeprazole 20 mg PO BIDAC 01/07/17 [History] Sennosides/Docusate Sodium [Senokot-S Tablet] 1 each PO BEDTIME 01/07/17 [ History] atorvaSTATin [Lipitor] 40 mg PO DAILY 01/07/17 [History] Doxycycline Calcium [IMW: Doxycycline] 100 mg PO Q12HR #28 capsule 01/19/17 [Rx] Hydrocodone/Acetaminophen [Hydrocodon-Acetaminophn 10-325] 1 tab PO Q8H PRN #25 tablet 01/19/17 [Rx] D-Methorphan/PE/Acetaminophen [Theraflu Expressmax Day Caplet] 1 tab PO BID [History] Potassium Chloride 1 tab PO DAILY 12/11/17 [History] Past Medical History Cardiovascular History: Reports: High Cholesterol, Hypertension Respiratory History: Reports: Bronchitis, Recurrent, COPD Gastrointestinal History: Reports: Gastritis, PUD Other Gastrointestinal History: enlarged liver Genitourinary History: Reports: Urinary Incontinence PATIENT CARE ASSOCIATE History: Reports: , Other (See Below) (cysts on ovary) Musculoskeletal History: Reports: Fracture, Osteoarthritis Neurological History: Reports: None Psychiatric History: Reports: Anxiety, Depression Endocrine/Metabolic History: Reports: Diabetes, Type II, Obesity/BMI 30+ Hematologic History: Reports: Iron Deficiency Immunologic History: Reports: None Oncologic (Cancer) History: Reports: None Dermatologic History: Reports: Cellulitis - Infectious Disease History Infectious Disease History: Reports: MRSA - Past Surgical History GI Surgical History: Reports: Cholecystectomy Female Surgical History: Reports: Breast Biopsy, Section, Hysterectomy Musculoskeletal Surgical History: Reports: Other (See Below) Other Musculoskeletal Surgeries/Procedures:: left knee metal plate Oncologic Surgical History: Reports: Biopsy of Breast Social & Family History - Family History Family Medical History: Noncontributory - Tobacco Use Smoking Status *Q: Never Smoker Second Hand Smoke Exposure: Yes - Caffeine Use Caffeine Use: Reports: None - Alcohol Use Days Per Week of Alcohol Use: 1 Number of Drinks Per Day: 3 Total Drinks Per Week: 3 - Recreational Drug Use Recreational Drug Use: No ED ROS GENERAL - Review of Systems Review Of Systems: ROS reveals no pertinent complaints other than HPI. ED EXAM, GI/ABD - Physical Exam Exam: See Below Exam Limited By: No Limitations General Appearance: Alert, WD/WN, No Apparent Distress Eyes: Bilateral: Normal Appearance Ears: Normal External Exam, Normal Canal, Hearing Grossly Normal, Normal TMs Nose: Normal Inspection, Normal Mucosa, No Blood Throat/Mouth: Normal Inspection, Normal Lips, Normal Teeth, Normal Gums, Normal Oropharynx, Normal Voice, No Airway Compromise Head: Atraumatic, Normocephalic Neck: Normal Inspection, Supple, Non-Tender, Full Range of Motion Respiratory/Chest: Other (decreased lung sounds) Cardiovascular: Normal Peripheral Pulses, Regular Rate, Rhythm, No Edema, No Gallop, No JVD, No Murmur, No Rub GI/Abdominal Exam: Other (Obese.Tender in RUQ, LUQ and epigastrium.) (Female) Exam: Deferred Rectal (Female) Exam: Deferred Back Exam: Normal Inspection, Full Range of Motion Extremities: Other (decreased range of motion) Neurological: Alert, Oriented, CN II-XII Intact, Normal Cognition, Normal Gait, Normal Reflexes, No Motor/Sensory Deficits Psychiatric: Normal Affect, Normal Mood Skin Exam: Warm, Dry, Intact, Normal Color, No Rash Lymphatic: No Adenopathy Course - Vital Signs Last Recorded V/S: Last Vital Signs Temp 98.6 F 12/11/17 12:24 Pulse 79 12/11/17 12:24 Resp 24 H 12/11/17 12:24 BP 124/67 12/11/17 12:24 Pulse Ox 94 L 12/11/17 12:24 - Orders/Labs/Meds Labs: Laboratory Tests 12/11/17 12/11/17 12/11/17 Range/Units 10:06 10:06 10:20 WBC 11.1 H (5.0-10.0) 10^3/uL RBC 4.78 (4.2-5.4) 10^6/uL Hgb 13.7 D (12.0-16.0) g/dL Hct 42.5 (37.0-47.0) % MCV 88.9 D (80-100) fL MCH 28.7 (27.0-34.0) pg MCHC 32.2 L (33.0-35.0) g/dL Plt Count 245 D (150-450) 10^3/uL Neut % (Auto) 84.6 H (42.2-75.2) % Lymph % (Auto) 9.0 L (20.5-50.1) % Christian % (Auto) 5.7 (2-8) % Eos % (Auto) 0.6 L (1.0-3.0) % Baso % (Auto) 0.1 (0.0-1.0) % Sodium 134 L (135-145) mmol/L Potassium 4.6 (3.6-5.0) mmol/L Chloride 101 (101-111) mmol/L Carbon Dioxide 25.0 (21.0-31.0) mmol/L Anion Gap 12.6 BUN 15 (7-18) mg/dL Creatinine 0.7 (0.6-1.3) mg/dL Est Cr Clr Drug Dosing 98.63 mL/min Estimated GFR (MDRD) > 60 BUN/Creatinine Ratio 21.42 Glucose 131 H (74-105) mg/dL Calcium 8.9 (8.4-10.2) mg/dl Total Bilirubin 0.7 (0.2-1.0) mg/dL AST 27 (10-42) IU/L ALT 18 (10-60) IU/L Alkaline Phosphatase 88 (42-121) IU/L Total Protein 7.0 (6.7-8.2) g/dl Albumin 3.3 (3.2-5.5) g/dl Globulin 3.7 Albumin/Globulin Ratio 0.89 Urine Color Yellow (YELLOW) Urine Appearance Slightly cloudy (CLEAR) Urine pH 7.0 (5.0-9.0) Ur Specific [place] 1.020 (1.005-1.030) Urine Protein Negative (NEGATIVE) Urine Glucose (UA) Negative (NEGATIVE) Urine Ketones Negative (NEGATIVE) Urine Occult Blood Negative (NEGATIVE) Urine Nitrite Negative (NEGATIVE) Urine Bilirubin Negative (NEGATIVE) Urine Urobilinogen 4.0 H (0.2-1.0) mg/dL Ur Leukocyte Esterase Small H (NEGATIVE) Urine RBC 0-5 /HPF Urine WBC 5-10 H (0-5/HPF) /HPF Ur Epithelial Cells Moderate H /HPF Urine Bacteria Many H (0-FEW/HPF) /HPF Influenza A and B: Negative. Meds: Medications Discontinued Medications Generic Name Dose Route Start Last Admin Trade Name Freq PRN Reason Stop Dose Admin Iopamidol 100 ml 12/11/17 11:03 12/11/17 11:47 Isovue-300 (61%) IVPUSH 12/11/17 11:04 100 ml ONETIME ONE Administration Morphine Sulfate 2 mg 12/11/17 10:35 12/11/17 10:43 Morphine IVPUSH 12/11/17 10:36 2 mg ONETIME ONE Administration Pantoprazole Sodium 40 mg 12/11/17 12:33 Protonix Iv IVPUSH 12/11/17 12:34 DAILY ONE - Radiology Interpretation Free Text/Narrative:: CT abdomen and pelvis: Cholecystectomy. Gastritis. Multilevel disc disease and arthritis lumbar spine. No acute intraperitoneal abnormality. See Rad report. Departure - Departure Time of Disposition: 12:14 Disposition: Home, Self-Care 01 Condition: Fair Clinical Impression: Gastritis Qualifiers: Gastritis type: unspecified gastritis Chronicity: acute Gastritis bleeding: without bleeding Qualified Code(s): K29.00 - Acute gastritis without bleeding - Discharge Information Instructions: Abdominal Pain, Adult, [id number], Gastritis, Adult, Easy-to- Read Referrals: PCP,None [Primary Care Provider] - Forms: ED Department Discharge Additional Instructions: RX: Carafate Drink plenty of water Lynn diet, gut rest Follow up with your primary care facility next week I have read and agree with the documentation that has been completed regarding this visit. By signing this record, I attest that the documentation was completed in my physical presence and is an accurate record of the encounter.
== END 2017-12-11 13:10 | disposition home or self-care (01) ==
LOC: DL.ED 09:26
DX: K29.00 Acute gastritis without bleeding (principal); I10 Essential (primary) hypertension; E78.00 Pure hypercholesterolemia, unspecified; F32.9 Major depressive disorder, single episode, unspecified; E11.9 Type 2 diabetes mellitus without complications; Z77.22 Contact with and (suspected) exposure to environmental tobacco smoke (acute) (chronic); Z90.49 Acquired absence of other specified parts of digestive tract; Z79.84 Long term (current) use of oral hypoglycemic drugs; Z79.82 Long term (current) use of aspirin; Z79.899 Other long term (current) drug therapy; Z88.1 Allergy status to other antibiotic agents
CPT/HCPCS: 36415; 74177; 80053; 81001; 82272; 85025; 87804; 96374; 99285; J2270; Q9967; 99284

== ENCOUNTER 2018-05-03 08:35 | Day surgery (SDC) | payer MEDICARE, MEDICAID ==
[2018-05-03] MEDS ORDERED: Midazolam 1 MG/ML 2 ML SDV IV ONE (08:36)
[2018-05-03] MEDS ORDERED: Propofol 200 MG/20 ML SDV IV ONE (08:36)
[2018-05-03] MEDS ORDERED: fentaNYL 100 MCG/2 ML SDV IV ONE (08:36)
[2018-05-03] MEDS ORDERED: Ondansetron 4 MG/2 ML SDV IV ONE (08:36)
[2018-05-03 09:27] LABS: CHLORIDE,CL 100 mmol/L (101-111); SODIUM,NA 135 mmol/L (135-145)
[2018-05-03] MEDS ORDERED: Lactated Ringers 1,000 ML IV SCH (09:45)
[2018-05-03] MEDS ORDERED: Silver Nitrate Applicator Each ONE (10:14)
[2018-05-03] MEDS ORDERED: Ferric Subsulfate Topical Soln 8 GM (8 ML) Bottle ONE (10:41)
[2018-05-03 15:42] VITALS: BP 132/69
--- NOTE | 2018-05-03 16:25 | OR ---
DATE: 05/03/2018 PREOPERATIVE DIAGNOSES: 1. Abnormally thickened endometrium. 2. Rule out endometrial hyperplasia. 3. Rule out endometrial neoplasia. POSTOPERATIVE DIAGNOSES: 1. Abnormally thickened endometrium. 2. Rule out endometrial hyperplasia. 3. Rule out endometrial neoplasia. OPERATIONS PERFORMED: 1. Dilatation and curettage. 2. Examination under anesthesia. ANESTHESIA: MAC monitored anesthesia care. ESTIMATED BLOOD LOSS: 5 mL. COMPLICATIONS: None. DESCRIPTION OF PROCEDURE: Preoperatively, the patient was examined again, and a thorough informed consent was done. We did discuss the goals of the operative procedure and the reasons for it and also the slight possibility of intraoperative or postoperative complications or adverse outcomes. The patient does carry extra weight and does weigh approximately 377 pounds and is in a higher risk group for endometrial hyperplasia and endometrial neoplasia. All of her questions have been answered. We did thoroughly discuss her with Anesthesia preoperatively. After the induction of monitored anesthesia care and with the patient carefully placed in the dorsal lithotomy position, the patient was routinely prepped and draped in the usual fashion. The bimanual exam was done, and the vaginal and cervical tissues are within normal limits. The cervix is actually very high in the vaginal vault, and she has had one 20 years ago. Vulvar exam was normal just before this. On bimanual exam, it was difficult to palpate the uterus or the ovaries themselves because of her corpulence. First of all, I attempted to use the weighted speculum placing it into the vagina, but this was extremely difficult to accomplish. Next, we used a long bivalve metal speculum, and this was an extra-long speculum. The cervix was negative for lesions, and I did carefully cleanse again myself and bathe the cervix copiously with Betadine solution. Now, using the single-tooth tenaculum and reaching extremely high into the vaginal vault and adjusting the lights a number of times, we were finally able to get access to this small innocent cervix which is very high in the vaginal vault, which is very long and deep. The uterus was now sounded to approximately 7.5 to 8 cm. The os binder was carefully utilized just before this. Now utilizing the dilators, the endocervical canal was carefully dilated to about #8 Hegar. Now using the appropriate-sized curette, the endometrial cavity was carefully and systematically curetted. There was not a lot of tissue obtained, but a moderate amount was obtained. Grossly and visibly, it did not appear to have a suspicious appearance. However, histologic and pathologic examination is pending. I did carefully try to make sure that enough tissue was obtained, and this was placed actually on about 4 or 5 different small trimmed Telfa pads, and all of these were carefully rolled up and submitted to Pathology. I also tried to obtain any other free tissue that may have dropped into the vaginal vault with the narrow-nosed uterine packing forceps. Also, I attempted to obtain a small amount of blood that had gravitated into the posterior vaginal vault to make sure that all tissue is reviewed for any pathology. I did utilize an 18-gauge needle and 20-mL syringe to carefully and non-traumatically get any pooled tissue out of the posterior vaginal vault. I did want to use a Stanford endometrial biopsy forceps also if it was available, but it was not available or ready for me. As mentioned above, all tissue was very carefully obtained and saved and sent to Pathology on this high-risk patient who is very difficult to examine and to get good access to her cervix and endometrium. Now, all of the instruments were removed. Sponge count was reported as correct. Estimated blood loss was approximately 5 mL. There were no intraoperative nor postoperative complications. As mentioned above, bimanual exam was again repeated at the end of the procedure and was unchanged from before. The patient has tolerated the procedure well and went to the recovery room in good condition. If the patient does have endometrial neoplasia, we will consider a progestational therapy regimen to hopefully reverse her endometrial hyperplasia; and on the other hand, if there is a complex atypical hyperplasia or neoplasia, she will be referred to [facility]Oncology. [facility] /[id number]
== END 2018-05-03 14:20 | disposition home or self-care (01) ==
LOC: DL.SDS 08:35
PROVIDERS: ATTEND Obstetrics & Gynecology
DX: N85.02 Endometrial intraepithelial neoplasia [EIN] (principal)
CPT/HCPCS: 00940; 36415; 58120; 80053; 81003; 85027; 93005; 93010; J2250; J2405; J2704; J3010; J7120; 88305